=== PATIENT | female | born 1950 | race Caucasian/White ===

== ENCOUNTER 2017-02-17 17:10 | Emergency (ER) | payer OTHER ==
[2017-02-17 17:26] VITALS: BP 137/61
--- NOTE | 2017-02-17 17:50 | UC ---
Hand/Wrist HPI - HPI Summary HPI Summary: right thumb red sore swollen after pw with a knife this am under nail - History Of Current Complaint Chief Complaint: UCUpperExtremity Stated Complaint: SWOLLEN THUMB Time Seen by Provider: 02/17/17 17:39 Hx Obtained From: Patient ?: No Mechanism Of Injury: PW with clean knife Onset/Duration: Sudden Onset - 8, Still Present, Worse Since - getting more swollen all day Severity Initially: Mild Severity Currently: Moderate Pain Intensity: 6 Pain Scale Used: 0-10 Numeric Character Of Pain: Sharp Aggravating Factor(s): Movement Alleviating: Elevation Associated Signs And Symptoms: Positive: Swelling, Redness, Bruising Related History: Dominant Hand Right - Allergies/Home Medications Allergies/Adverse Reactions: Allergies Allergy/AdvReac Type Severity Reaction Status Date / Time Penicillins Allergy See Comment Verified 02/17/17 17:26 PMH/Surg Hx/FS Hx/Imm Hx Previously Healthy: Yes Endocrine History Of: Denies: Diabetes, Thyroid Disease Cardiovascular History Of: Denies: Cardiac Disorders, Hypertension, Pacemaker/ICD Respiratory History Of: Denies: COPD, Asthma GI/ History Of: Denies: Ulcer, Renal Disease Cancer History Of: Denies: Breast Cancer - Surgical History Surgical History: Yes Surgery Procedure, Year, and Place: nick; T & A; wisdom teeth - Family History Known Family History: Positive: None Family History: no cardiovascular or bleeding disorders in family lineage - Social History Occupation: Employed Full-time Lives: With Family Alcohol Use: Rare Substance Use Type: None Smoking Status (MU): Never Smoked Tobacco - Immunization History Hx Tetanus, Diphtheria Vaccination: Yes Vaccination Up to Date: Yes Review of Systems Constitutional: Negative Skin: Negative Eyes: Negative ENT: Negative Respiratory: Negative Cardiovascular: Negative Gastrointestinal: Negative Genitourinary: Negative Motor: Negative Neurovascular: Negative Musculoskeletal: Negative, Edema - right thumb, Myalgia - right thumb Neurological: Negative Psychological: Negative All Other Systems Reviewed And Are Negative: Yes Physical Exam Triage Information Reviewed: Yes Appearance: Well-Appearing, No Pain Distress, Well-Nourished Vital Signs: Initial Vital Signs Temp 98.9 F 02/17/17 17:23 Pulse 65 02/17/17 17:23 Resp 16 02/17/17 17:23 BP 137/61 02/17/17 17:23 Pulse Ox 99 02/17/17 17:23 Vital Signs Reviewed: Yes Eye Exam: Normal Eyes: Positive: Conjunctiva Clear ENT Exam: Normal ENT: Positive: Normal ENT inspection, Hearing grossly normal, Pharynx normal, TMs normal. Negative: Nasal congestion, Nasal drainage, Trismus, Muffled/ hoarse voice Dental Exam: Normal Neck exam: Normal Neck: Positive: Supple, Nontender, No Lymphadenopathy Respiratory Exam: Normal Respiratory: Positive: Chest non-tender, Lungs clear, Normal breath sounds, No respiratory distress, No accessory muscle use Cardiovascular Exam: Normal Cardiovascular: Positive: RRR, No Murmur, Pulses Normal, Brisk Capillary Refill Musculoskeletal Exam: Other Musculoskeletal: Positive: Strength Intact, ROM Intact, Edema @ - distal right thumb Neurological Exam: Normal Neurological: Positive: Alert, Muscle Tone Normal Psychological Exam: Normal Skin Exam: Other Skin: Positive: Other - bruise under top of right thumb nail Hand/Wrist Course/Dx - Course Course Of Treatment: elevate, warm soaks, ibuprofen, bactrim, follow with pcp - Differential Dx/Diagnosis Differential Diagnosis/HQI/PQRI: Contusion, Infection, Subungual Hematoma Provider Diagnoses: Pw right thumb Discharge - Discharge Plan Condition: Stable Disposition: HOME Prescriptions: DOXYcycline CAP(*) [DOXYcycline 100MG CAP(*)] 100 mg PO BID #20 cap Patient Education Materials: Finger Laceration (ED), Heat Pack Application (ED) , Doxycycline (By mouth) Referrals: Vandana Hart MD [Primary Care Provider] - 2 Weeks
== END 2017-02-17 17:57 | disposition home or self-care (01) ==
LOC: UCEAST 17:10
DX: S61.131A Puncture wound without foreign body of right thumb with damage to nail, initial encounter (principal); W26.0XXA Contact with knife, initial encounter; Y92.9 Unspecified place or not applicable
CPT/HCPCS: 99212; G0463

== ENCOUNTER 2017-12-10 08:33 | Emergency (ER) | payer MEDICARE ==
[2017-12-10 08:42] VITALS: BP 124/71
--- NOTE | 2017-12-10 10:38 | UC ---
Romero Dixon Gabriel, scribed for Lena Santiago DO on 12/10/17 at 0905 . Throat Pain/Nasal Steve HPI - HPI Summary HPI Summary: This patient is a 67 year old F presenting to [facility] accompanied by her with a chief complaint of sinus pressure that began a week ago. The patient rates the pain 5/10 in severity. Patient reports cough, fever, near syncope at , rhinorrhea, sinus congestion, unsteady on ambulation, and a sore throat. Patient denies ear pain, CP, SOB, n/v/d, myalgia, joint pain, and confusion. Pt s had the flu and while on Tamiflu he developed a cough that he believes was bacterial. - History of Current Complaint Chief Complaint: UCRespiratory Stated Complaint: COUGH,FEVER Time Seen by Provider: 12/10/17 08:52 Hx Obtained From: Patient Onset/Duration: Lasting Weeks, Still Present Pain Intensity: 5 Pain Scale Used: 0-10 Numeric Cough: Productive Associated Signs & Symptoms: Positive: Negative - ear pain, Other - cough, fever, near syncope, rhinorrhea, sinus congestion, and a sore throat. - Allergies/Home Medications Allergies/Adverse Reactions: Allergies Allergy/AdvReac Type Severity Reaction Status Date / Time Penicillins Allergy See Comment Verified 12/10/17 08:35 PMH/Surg Hx/FS Hx/Imm Hx GI/ History: Other - Hiatal hernia Other GI/ History: Hiatal hernia Other History Of: Negative For: Hepatitis C - Surgical History Surgical History: Yes Surgery Procedure, Year, and Place: nick; T & A; wisdom teeth ,polyps removed - Family History Known Family History: Positive: None Negative: Cardiac Disease, Hypertension Family History: no cardiovascular or bleeding disorders in family lineage - Social History Alcohol Use: Rare Substance Use Type: None Smoking Status (MU): Never Smoked Tobacco - Immunization History Hx Tetanus, Diphtheria Vaccination: Yes Vaccination Up to Date: Yes Review of Systems Constitutional: Fever ENT: Sore Throat, Nasal Discharge, Sinus Pain/Tenderness Respiratory: Cough Musculoskeletal: Other: - unsteady on ambulation Neurological: Other - near syncope All Other Systems Reviewed And Are Negative: Yes Physical Exam - Summary Physical Exam Summary: Appearance: Well-Appearing, No Pain Distress, Well-Nourished Eyes: conjunctiva clear, no discharge ENT: Hearing grossly normal, no muffled/hoarse voice. TMs normal, negative tonsillar swelling, negative tonsillar exudate, negative trismus. Neck: Normal, Supple Respiratory/Lung Sounds: Lungs clear, mildly prolonged expiration in bilateral bases, No respiratory distress, No accessory muscle use Cardiovascular: RRR, No murmur Abdomen (if she checks): Nontender, Soft, no guarding, not distended Bowel Sounds (if she checks): Present Musculoskeletal: Normal Neurological: Alert, muscle tone normal Psychiatric:Normal, age appropriate behavior Skin: Normal, Warm, Dry, Normal color Triage Information Reviewed: Yes Vital Signs: Initial Vital Signs Temp 99 F 12/10/17 08:38 Pulse 103 12/10/17 08:38 Resp 20 12/10/17 08:38 BP 124/71 12/10/17 08:38 Pulse Ox 98 12/10/17 08:38 Vital Signs Reviewed: Yes Diagnostics - EKG Cardiac Rate: NL - at 88 BPM Cardiac Rhythm: Sinus: Normal - no ST changes, no ectopy Ectopy: None Throat Pain/Nasal Course/Dx - Course Assessment/Plan: This patient is a 67 year old F presenting to [facility] accompanied by her with a chief complaint of sinus pressure that began a week ago. The patient rates the pain 5/10 in severity. Patient reports cough, fever, near syncope, rhinorrhea, sinus congestion, unsteady on ambulation, and a sore throat. Patient denies ear pain, CP, SOB, n/v/d, myalgia, joint pain, and confusion. Pts had the flu and while on Tamiflu he developed a cough that he believes was bacterial. An EKG reveals NSR at [address] changes, no ectopy. Pt was negative for influenza A and B. Patient will be discharged and will report to the ED. The patient is agreeable with this plan. Medications reviewed. Allergies reviewed. - Differential Dx/Diagnosis Provider Diagnoses: URI, near syncope, and unsteady gait Discharge - Discharge Plan Condition: Stable Disposition: HOME Patient Education Materials: Upper Respiratory Infection (ED), Near Syncope (ED ) Referrals: Vandana Hart MD [Primary Care Provider] - Additional Instructions: YOU APPEAR TO HAVE AN UPPER RESPIRATORY VIRUS. THAT IS SOMETHING WE CAN TREAT HERE IN THE URGENT CARE. HOWEVER, BECAUSE YOU HAD AN EPISODE OF NEAR SYNCOPE HERE AND YOU ARE REPORTING UNSTEADY GAIT, WE CAN NOT SEND YOU HOME WITHOUT FURTHER EVALUATION. WE RECOMMEND THAT YOU GO TO THE ED IMMEDIATELY FOR THAT EVALUATION. THE RISKS ASSOCIATED WITH NEAR SYNCOPE AND UNSTEADY GAIT INCLUDE FALLING, DAMAGE TO THE HEART, CARDIAC ARRHYTHMIA, CARDIAC ARREST, DAMAGE TO THE HEART, WORSENING INFECTION AND . The documentation as recorded by the Romero gee Gabriel accurately reflects the service I personally performed and the decisions made by , Lena Santiago DO.
== END 2017-12-10 09:56 | disposition home or self-care (01) ==
LOC: UCEAST 08:33
DX: J06.9 Acute upper respiratory infection, unspecified (principal); R55 Syncope and collapse; R26.81 Unsteadiness on feet; Z88.0 Allergy status to penicillin; K44.9 Diaphragmatic hernia without obstruction or gangrene
CPT/HCPCS: 87502; 93005; 99212; G0463

== ENCOUNTER 2017-12-10 10:17 | Emergency (ER) | payer MEDICARE ==
[2017-12-10] MEDS ORDERED: NS 0.9% 1000 ML* 1,000 ML IV ONE (10:39)
[2017-12-10 11:11] LABS: ABS Basophils 0 10^3/ul (0-0.2); ABS Eosinophils 0 10^3/ul (0-0.6); ABS Lymphocytes 0.6 10^3/ul (1.0-4.8); ABS Monocytes 0.4 10^3/ul (0-0.8); ABS Neutrophils 6.1 10^3/ul (1.5-7.7); ABS Nucleated RBC 0 10^3/ul; Eosinophil % 0.3 % (0-6); Hematocrit 37 % (35-47); Hemoglobin 12.9 g/dl (12.0-16.0); Lymphocyte % 8.2 % (25-47); Mean Corpuscular HGB Conc 35 g/dl (31-36); Mean Corpuscular Hemoglobin 31 pg (27-31); Mean Corpuscular Volume 91 fL (80-97); Mean Platelet Volume 9 um3 (7.4-10.4); Nucleated Red Blood Cells % 0; Platelet Count 140 10^3/ul (150-450); Red Blood Count 4.12 10^6/ul (4.0-5.4); Red Cell Distribution Width 13 % (10.5-15); White Blood Count 7.2 10^3/ul (3.5-10.8)
--- NOTE | 2017-12-10 11:29 | RAD ---
HISTORY: Cough COMPARISONS: None VIEWS: 4: Frontal dual-energy and lateral views of the chest. FINDINGS: CARDIOMEDIASTINAL SILHOUETTE: The cardiomediastinal silhouette is normal. JESSE: The jesse are normal. PLEURA: The costophrenic angles are sharp. No pleural abnormalities are noted. LUNG PARENCHYMA: There is hyperinflation with flattening of the diaphragm and expansion of the AP diameter of the chest. ABDOMEN: The upper abdomen is clear. There is no subphrenic gas. BONES AND SOFT TISSUES: No bone or soft tissue abnormalities are noted. OTHER: None. IMPRESSION: HYPERINFLATION, CONSISTENT WITH COPD. NO ACTIVE CARDIOPULMONARY DISEASE.
[2017-12-10 11:48] LABS: EGFR Non-African American 76.1 (>60)
[2017-12-10] MEDS ORDERED: Azithromycin IV* 500 MG ADVAN VIAL/BAG IVPB ONE (11:55)
[2017-12-10 13:30] LABS: Urine Appearance Clear; Urine Blood 1+ (Negative); Urine Color Straw; Urine Ketones Negative (Negative); Urine Protein Negative (Negative); Urine Specific Gravity 1.005 (1.010-1.030); Urine Urobilinogen Negative (Negative)
[2017-12-10 14:39] VITALS: BP 127/74
--- NOTE | 2017-12-11 08:21 | ED ---
Hollis Dixon Angela, scribed for Kory Leyva MD on 12/10/17 at 1047 . Syncope/Near Syncope - HPI Summary HPI Summary: This pt is a 67 y/o female presenting to [facility] referred by [facility] c/o 1 episode of near syncope this morning. Pt reports she has had a cough for the past 6 days associated with low grade fever, sinus congestion, sore throat, rhinorrhea. She states she feels fatigued. Pt notes her temperature this morning was 100 F and she decided to go to Urgent Care. Pt reports she was sitting down while waiting on the provider when she began to feel lightheaded and like almost fainting. She notes she put her head between her knees and then moved to the bed and laid in a supine position, which alleviated her near syncopal episode. Denies chest pain, SOB, nausea, vomiting. Pt was tested for influenza at Urgent Care, which resulted negative. - History Of Current Complaint Chief Complaint: EDFluSymptoms Time Seen by Provider: 12/10/17 10:36 Hx Obtained From: Patient Onset/Duration: Sudden Onset, Resolved Timing: Minutes Context: Witnessed Activity At Onset: At Rest Associated Head Trauma: No Aggravating Factor(s): Nothing Alleviating Factor(s): Position Change - horizontal position Associated Signs And Symptoms: Other - POS: Sinus congestion, low grade fever, cough, sore throat, rhinorrhea. NEG: SOB, chest pain, nausea, vomiting. - Allergies/Home Medications Allergies/Adverse Reactions: Allergies Allergy/AdvReac Type Severity Reaction Status Date / Time Penicillins Allergy See Comment Verified 12/10/17 08:35 PMH/Surg Hx/FS Hx/Imm Hx Endocrine/Hematology History: Denies: Hx Diabetes, Hx Thyroid Disease Cardiovascular History: Denies: Hx Hypertension, Hx Pacemaker/ICD Respiratory History: Denies: Hx Asthma, Hx Chronic Obstructive Pulmonary Disease (COPD) GI History: Denies: Hx Ulcer History: Denies: Hx Renal Disease Musculoskeletal History: Denies: Hx Rheumatoid Arthritis, Hx Osteoporosis Sensory History: Denies: Hx Hearing Aid Psychiatric History: Denies: Hx Panic Disorder - Cancer History Hx Chemotherapy: No Hx Radiation Therapy: No - Surgical History Surgery Procedure, Year, and Place: nick; T & A; wisdom teeth ,polyps removed Infectious Disease History: No Infectious Disease History: Denies: Hx Clostridium Difficile, Hx Hepatitis, Hx Human Immunodeficiency Virus (HIV), Hx of Known/Suspected MRSA, Hx Shingles, Hx Tuberculosis, Hx Known/ Suspected VRE, History Other Infectious Disease, Traveled Outside the [place] in Last 30 Days - Family History Known Family History: Negative: Cardiac Disease, Hypertension Family History: no cardiovascular or bleeding disorders in family lineage - Social History Alcohol Use: Rare Substance Use Type: Reports: None Smoking Status (MU): Never Smoked Tobacco Review of Systems Positive: Fever, Fatigue ENT: Other - sinus congestion Positive: Sore Throat, Nasal Discharge Negative: Chest Pain Positive: Cough. Negative: Shortness Of Breath Negative: Vomiting, Nausea Neurological: Other - POS: lightheadedness, near syncope All Other Systems Reviewed And Are Negative: Yes Physical Exam - Summary Physical Exam Summary: VITAL SIGNS: Reviewed. GENERAL: Patient is a well-developed and nourished female who is lying comfortable in the stretcher. Patient is not in any acute respiratory distress. Pt is febrile. HEAD AND FACE: No signs of trauma. No ecchymosis, hematomas or skull depressions. No sinus tenderness. EYES: PERRLA, EOMI x 2, No injected conjunctiva, no nystagmus. EARS: Hearing grossly intact. Ear canals and tympanic membranes are within normal limits. MOUTH: Oropharynx within normal limits. NECK: Supple, trachea is midline, no adenopathy, no JVD, no carotid bruit, no c- spine tenderness, neck with full ROM. CHEST: Symmetric, no tenderness at palpation LUNGS: Crackles in the bases of the lungs. CVS: Regular rate and rhythm, S1 and S2 present, no murmurs or gallops appreciated. ABDOMEN: Soft, non-tender. No signs of distention. No rebound no guarding, and no masses palpated. Bowel sounds are normal. EXTREMITIES: FROM in all major joints, no edema, no cyanosis or clubbing. NEURO: Alert and oriented x 3. No acute neurological deficits. Speech is normal and follows commands. SKIN: Dry and warm GCS: 15 Triage Information Reviewed: Yes Vital Signs On Initial Exam: Initial Vitals Temp Pulse Resp BP Pulse Ox 101.0 F 100 20 130/76 93 12/10/17 10:25 12/10/17 10:25 12/10/17 10:25 12/10/17 10:25 03/08/18 10:25 Vital Signs Reviewed: Yes Diagnostics - Vital Signs Vital Signs Temp Pulse Resp BP Pulse Ox 12/10/17 10:25 101.0 F 100 20 130/76 93 - Laboratory Result Diagrams: 12/10/17 10:45 12/10/17 10:45 Lab Statement: Any lab studies that have been ordered have been reviewed, and results considered in the medical decision making process. - Radiology Chest XR Xray Interpretation: Positive (See Comments) - IMPRESSION: Hyperinflation, consistent with COPD. No active cardiopulmonary disease. Dr. Leyva has reviewed this radiology report. Radiology Interpretation Completed By: Radiologist - EKG 10:50 Cardiac Rate: NL EKG Rhythm: Sinus Rhythm - at 85 bpm EKG Interpretation: No ST elevation. Course/Dx Assessment/Plan: This pt is a 67 y/o female presenting to [facility] referred by [facility] c/o 1 episode of near syncope this morning. Pt reports she has had a cough for the past 6 days associated with low grade fever, sinus congestion, sore throat, rhinorrhea. She states she feels fatigued. Pt notes her temperature this morning was 100 F and she decided to go to Urgent Care. Pt reports she was sitting down while waiting on the provider when she began to feel lightheaded and like almost fainting. She notes she put her head between her knees and then moved to the bed and laid in a supine position, which alleviated her near syncopal episode. Denies chest pain, SOB, nausea, vomiting. Pt was tested for influenza at Urgent Care, which resulted negative. Test results without any significant abnormalities. Pt has no WBC, however CRP is elevated. Since the chest XR shows no pneumonia, I believe the pt is dealing with bronchitis. Also since the pt has a history of COPD, I placed the pt on azithromycin. At this point the pt is feeling better and therefore she will be discharged to home with follow up from her PCP. Pt is hemodynamically stable, alert and oriented x3. She is instructed to return to the ED for any worsening or new symptoms. - Diagnoses Provider Diagnoses: Bronchitis Discharge - Discharge Plan Condition: Stable Disposition: HOME Prescriptions: Azithromycin TAB* [Zithromax TAB (Z-DAVID) 250 mg #6 tabs] 250 mg PO DAILY #4 tab Patient Education Materials: Acute Bronchitis (ED) Referrals: Vandana Hart MD [Primary Care Provider] - 3 Days Additional Instructions: Please follow up with your primary care provider. RETURN TO THE ED FOR ANY WORSENING SYMPTOMS. The documentation as recorded by the Hollis gee Angela accurately reflects the service I personally performed and the decisions made by , Kory Leyva MD.
== END 2017-12-10 14:58 | disposition home or self-care (01) ==
LOC: ED 10:17
DX: J40 Bronchitis, not specified as acute or chronic (principal); R50.9 Fever, unspecified; R05 Cough; J02.9 Acute pharyngitis, unspecified; R53.83 Other fatigue
CPT/HCPCS: 36415; 71046; 80053; 81003; 81015; 82550; 82553; 83605; 83880; 84484; 85025; 86140; 87040; 87086; 93005; 96365; 99282; J0456

== ENCOUNTER 2018-05-14 08:17 | Emergency (ER) | payer MEDICARE ==
--- OUTSIDE RECORDS SUMMARY | 2018-05-14 08:25 | XMS REPORT ---
:1950 External Reference #:[id number] Author Organization [facility] Address [address] [place] [address] [place] [address] Phone [phone] Care Team Providers Name Role Phone Vandana Hart MD Primary Care Physician Unavailable Payers Type Date Identification Numbers Payment Provider Subscriber Health Maintenance Effective: Policy Number: Medicare Blue Jen Eckert Organization (O) 10/05/2017 [id number] o PayID: [id number] [address] [address] [place] [address] Problems Description No Active Problems Family History Date Family Member(s) Problem(s) Comments Father due to Natural Causes () Mother Heart Disease on warfarin, no detail Mother Osteoporosis hip Fx in her 90s First Brother Diabetes Social History Type Date Description Comments Marital Status Lives With Occupation Retired not working ETOH Use Drinks Alcoholic Beverages Rarely Smoking Patient has never smoked Daily Caffeine Consumes on average 2 cups of decaff coffee per day General Hx Text Allergies, Adverse Reactions, Alerts Date Description Reaction Status Severity Comments 07/16/2012 Penicillins Allergic arthritis, Erythema nodosum active Medications Medication Date Status Form Strength Qnty SIG Indications Ordering Provider Baclofen 04/15/ Active Tablets 10mg 14tabs take 10/06 M54.5 Anshul Marshall, 2018 tab [employer] LEAD every 8 hours as needed for muscle spasm Vitamin B 12/01/ Active Capsules Kandice Leong 2012 Reggie Thomas Vit D / Active Unknown 0000 Omeprazole 05/15/ Hx Capsules 20mg 30caps 1 by R10.13 Vandana 2016 - DR harvinder Hart, 12/18/ every M.D. 2018 day Azithromycin 07/25/ Hx Tablets 250mg 6tabs 2 tabs J20.9 Vandana 2015 - by mouth Cotton, 08/05/ on day M.D. 2015 1; 1 tab by mouth every day on days 2-5 Vitamin D 09/14/ Hx Capsules [id number] 12caps 1 by E55.9 Vandana (Ergocalciferol 2014 - mouth Cotton, ) 12/17/ once M.D. 2015 weekly for 12 weeks Calcipotriene 09/12/ Hx Solution 0.005% 60ml Apply to 782.1 Vandana 2013 - itchy Cotton, 03/02/ parts of M.D. 2014 the scalp bid Womens Multi / Hx Capsules daily Unknown 0000 - 2012 [facility] / Hx Tablets daily Unknown 0000 - 2012 Immunizations CPT Code Status Date Vaccine Reaction Lot # [id number] Given 02/11/2018 Pneumonia Vaccine No allergies noted - no [id number] immediate side effects seen - patient tolerated well [id number] Given 10/21/2017 Afluria Vaccine 30180 Given 12/12/2016 Zoster (Zostavax) no immediate reaction [id number] noted ... 18399 Given 10/14/2016 Pneumococcal Conjugate no immediate reaction [id number] Vaccine 13 Valent For noted .. Intramuscular Use 67184 Given 08/18/2016 Influenza Virus Vaccine, no immediate reaction [id number] Quadrivalent, Split Virus, [place] [address] Given 09/14/2015 Influenza Virus Vaccine, [id number] Quadrivalent, Split, Preservative Free 29991 Given 09/12/2014 Flu Vaccine Split Virus [id number] Preservative Free For Indiv 3Yr Older Q2038 Given 07/16/2012 Fluzone Vaccine [id number] 48369 Given 07/16/2012 Tdap - [id number] Tetanus/Diptheria/Acellular Pertussis Vital Signs Date Vital Result Comment 04/15/2018 Height 67 inches 5'7" Weight 167.00 lb Heart Rate 62 /min BP Systolic Sitting 151 mmHg BP Diastolic Sitting 89 mmHg O2 % BldC Oximetry 98 % BMI (Body Mass Index) 26.2 kg/m2 02/11/2018 Height 67 inches 5'7" Weight 167.00 lb Heart Rate 78 /min BP Systolic Sitting 125 mmHg BP Diastolic Sitting 75 mmHg Body Temperature 98.4 F O2 % BldC Oximetry 97 % BMI (Body Mass Index) 26.2 kg/m2 12/21/2017 Weight 168.00 lb Heart Rate 72 /min BP Systolic Sitting 120 mmHg BP Diastolic Sitting 72 mmHg Body Temperature 97.3 F O2 % BldC Oximetry 98 % 07/02/2017 Weight 171.00 lb Heart Rate 73 /min BP Systolic 110 mmHg BP Diastolic 60 mmHg O2 % BldC Oximetry 98 % 05/15/2017 Weight 165.75 lb Heart Rate 69 /min BP Systolic 122 mmHg BP Diastolic 64 mmHg Body Temperature 97.6 F O2 % BldC Oximetry 98 % 03/09/2017 Weight 167.00 lb Heart Rate 77 /min BP Systolic Sitting 136 mmHg BP Diastolic Sitting 84 mmHg O2 % BldC Oximetry 97 % 12/12/2016 Weight 166.00 lb with shoes Heart Rate 67 /min BP Systolic 140 mmHg BP Diastolic 86 mmHg O2 % BldC Oximetry 98 % 11/14/2016 Height 67 inches 5'7" Weight 167.75 lb with boots Heart Rate 77 /min BP Systolic 150 mmHg BP Diastolic 80 mmHg Body Temperature 97.8 F O2 % BldC Oximetry 98 % BMI (Body Mass Index) 26.3 kg/m2 10/14/2016 Height 67 inches 5'7" Weight 165.00 lb Heart Rate 69 /min BP Systolic 124 mmHg BP Diastolic 74 mmHg Body Temperature 98.4 F O2 % BldC Oximetry 98 % BMI (Body Mass Index) 25.8 kg/m2 09/18/2016 Weight 172.00 lb Heart Rate 68 /min BP Systolic Sitting 124 mmHg BP Diastolic Sitting 78 mmHg Respiratory Rate 15 /min Body Temperature 97.5 F O2 % BldC Oximetry 98 % 08/18/2016 Height 67.25 inches 5'7.25" Weight 166.00 lb Heart Rate 73 /min BP Systolic 120 mmHg BP Diastolic 70 mmHg Body Temperature 98.3 F O2 % BldC Oximetry 98 % BMI (Body Mass Index) 25.8 kg/m2 07/25/2016 Weight 163.00 lb Heart Rate 76 /min BP Systolic Sitting 128 mmHg BP Diastolic Sitting 74 mmHg Respiratory Rate 15 /min Body Temperature 97.7 F O2 % BldC Oximetry 98 % 07/21/2016 Weight 160.00 lb Heart Rate 72 /min BP Systolic Sitting 122 mmHg BP Diastolic Sitting 80 mmHg Respiratory Rate 15 /min Body Temperature 98.4 F O2 % BldC Oximetry 98 % 05/19/2016 Weight 156.00 lb Heart Rate 65 /min BP Systolic Sitting 145 mmHg BP Diastolic Sitting 80 mmHg O2 % BldC Oximetry 98 % 09/14/2015 Height 67.25 inches 5'7.25" Weight 166.00 lb Heart Rate 72 /min BP Systolic Sitting 127 mmHg BP Diastolic Sitting 77 mmHg Body Temperature 97.3 F O2 % BldC Oximetry 99 % BMI (Body Mass Index) 25.8 kg/m2 03/02/2015 Height 68 inches 5'8" Weight 164.00 lb Heart Rate 70 /min BP Systolic 120 mmHg BP Diastolic 65 mmHg Body Temperature 97.9 F BMI (Body Mass Index) 24.9 kg/m2 09/12/2014 Height 68 inches 5'8" Weight 170.50 lb Heart Rate 86 /min BP Systolic Sitting 120 mmHg BP Diastolic Sitting 82 mmHg Body Temperature 97.6 F BMI (Body Mass Index) 25.9 kg/m2 05/30/2014 Weight 159.50 lb Heart Rate 84 /min BP Systolic Sitting 120 mmHg BP Diastolic Sitting 76 mmHg Body Temperature 96.9 F 01/30/2014 Weight 169.00 lb Heart Rate 68 /min BP Systolic Sitting 130 mmHg BP Diastolic Sitting 82 mmHg Body Temperature 97.9 F 09/09/2013 Height 67.75 inches 5'7.75" Weight 173.00 lb Heart Rate 64 /min BP Systolic 126 mmHg BP Diastolic 66 mmHg BMI (Body Mass Index) 26.5 kg/m2 05/23/2013 Weight 168.00 lb Heart Rate 68 /min BP Systolic Sitting 126 mmHg BP Diastolic Sitting 72 mmHg 01/21/2013 Weight 176.00 lb Heart Rate 64 /min BP Systolic Sitting 132 mmHg BP Diastolic Sitting 60 mmHg 12/17/2012 Height 67.75 inches 5'7.75" Weight 178.50 lb Heart Rate 68 /min BP Systolic Sitting 118 mmHg BP Diastolic Sitting 74 mmHg BMI (Body Mass Index) 27.3 kg/m2 12/01/2012 Height 67.75 inches 5'7.75" Weight 175.00 lb Heart Rate 82 /min BP Systolic Sitting 122 mmHg BP Diastolic Sitting 62 mmHg BMI (Body Mass Index) 26.8 kg/m2 10/18/2012 Height 67.75 inches 5'7.75" Weight 172.00 lb Heart Rate 74 /min BP Systolic Sitting 124 mmHg BP Diastolic Sitting 78 mmHg BMI (Body Mass Index) 26.3 kg/m2 09/17/2012 Height 67.75 inches 5'7.75" Weight 172.00 lb Heart Rate 72 /min BP Systolic Sitting 128 mmHg BP Diastolic Sitting 74 mmHg BMI (Body Mass Index) 26.3 kg/m2 07/16/2012 Height 67.75 inches 5'7.75" Weight 167.00 lb Heart Rate 74 /min BP Systolic Sitting 126 mmHg BP Diastolic Sitting 64 mmHg BMI (Body Mass Index) 25.6 kg/m2 Results Test Date Test Result H/L Range Note Rapid Influenza A & B 12/10/2017 Influenza A Molecular NEGATIVE Negative 1 Molecular Influenza B Molecular NEGATIVE Negative Laboratory test finding 12/10/2017 Blood Culture SEE RESULT BELOW 2 CKMB 12/10/2017 CKMB ng/mL 1.2 ng/mL 0.6-6.3 Urinalysis Profile 12/10/2017 Urine Color Straw Urine Appearance Clear Urine Specific [place] 1.005 Low 1.010-1.030 Urine pH 7.0 5-9 Urine Urobilinogen Negative Negative Urine Ketones Negative Negative Urine Protein Negative Negative Urine Leukocytes Negative Negative Urine Blood 1+ Negative Urine Nitrite Negative Negative Urine Bilirubin Negative Negative Urine Glucose Negative Negative Urine White Blood Cell Trace(0-5/hpf) Absent Urine Red Blood Cell Trace(0-2/hpf) Absent Urine Bacteria Absent Absent Urine Squamous Epithelial Cell Present Absent Urine Culture And 12/10/2017 Urine Culture SEE RESULT BELOW 3 Sensitivities Laboratory test finding 12/10/2017 Creatine Kinase(CK) 69 U/L 10-223 C Reactive Protein 14.99 mg/L High < 5.00 4 Troponin-I (TnI) 0.00 ng/mL <0.04 Laboratory test finding 12/10/2017 Rapid Influenza A B SEE RESULT BELOW 5 Antigen Lactic Acid 0.6 mmol/L 0.5-2.0 6 B-Type Natriuretic Peptide BNP 15 pg/mL 7 Comp Metabolic Panel 12/10/2017 Sodium 133 mmol/L 133-145 Potassium 4.1 mmol/L 3.5-5.0 Chloride 102 mmol/L 101-111 Co2 Carbon Dioxide 23 mmol/L 22-32 Anion Gap 8 mmol/L 2-11 Glucose 104 mg/dL High 70-100 Blood Urea Nitrogen 13 mg/dL 6-24 Creatinine 0.76 mg/dL 0.51-0.95 BUN/Creatinine Ratio 17.1 8-20 Calcium 9.2 mg/dL 8.6-10.3 Total Protein 7.2 g/dL 6.4-8.9 Albumin 4.1 g/dL 3.2-5.2 Globulin 3.1 g/dL 2-4 Albumin/Globulin Ratio 1.3 1-3 Total Bilirubin 0.40 mg/dL 0.2-1.0 Alkaline Phosphatase 95 U/L 34-104 Alt 40 U/L 7-52 Ast 39 U/L 13-39 Egfr Non- 76.1 >60 Egfr 97.9 >60 8 Laboratory test 12/03/2017 Surgical Interface Order SEE RESULT BELOW 9 , 10 finding Laboratory test 12/03/2017 Clotest SEE RESULT BELOW 11, 12 finding Lipid Profile 10/16/2017 Triglycerides 103 mg/dL 13 (Trig/Chol/HDL) Cholesterol 196 mg/dL 14 HDL Cholesterol 46.3 mg/dL 15 LDL Cholesterol 129 mg/dL 16 Laboratory test finding 10/16/2017 Glucose 93 mg/dL 70-100 17 CBC Auto Diff 05/15/2017 White Blood Count 6.8 10^3/uL 3.5-10.8 Red Blood Count 4.35 10^6/uL 4.0-5.4 Hemoglobin 13.5 g/dL 12.0-16.0 Hematocrit 40 % 35-47 Mean Corpuscular Volume 92 fL 80-97 Mean Corpuscular Hemoglobin 31 pg 27-31 Mean Corpuscular HGB Conc 34 g/dL 31-36 Red Cell Distribution Width 13 % 10.5-15 Platelet Count 183 10^3/uL 150-450 Mean Platelet Volume 10 um3 7.4-10.4 Abs Neutrophils 4.8 10^3/uL 1.5-7.7 Abs Lymphocytes 1.2 10^3/uL 1.0-4.8 Abs Monocytes 0.5 10^3/uL 0-0.8 Abs Eosinophils 0.2 10^3/uL 0-0.6 Abs Basophils 0.1 10^3/uL 0-0.2 Abs Nucleated RBC 0 10^3/uL Granulocyte % 70.3 % 38-83 Lymphocyte % 18.1 % Low 25-47 Monocyte % 7.5 % 1-9 Eosinophil % 3.4 % 0-6 Basophil % 0.7 % 0-2 Nucleated Red Blood Cells % 0 Comp Metabolic Panel 05/15/2017 Sodium 137 mmol/L 133-145 Potassium 4.1 mmol/L 3.5-5.0 Chloride 103 mmol/L 101-111 Co2 Carbon Dioxide 29 mmol/L 22-32 Anion Gap 5 mmol/L 2-11 Glucose 96 mg/dL 70-100 Blood Urea Nitrogen 12 mg/dL 6-24 Creatinine 0.86 mg/dL 0.51-0.95 BUN/Creatinine Ratio 14.0 8-20 Total Protein 6.7 g/dL 6.4-8.9 Albumin 4.2 g/dL 3.2-5.2 Globulin 2.5 g/dL 2-4 Albumin/Globulin Ratio 1.7 1-3 Total Bilirubin 0.60 mg/dL 0.2-1.0 Alkaline Phosphatase 80 U/L 34-104 Alt 29 U/L 7-52 Ast 27 U/L 13-39 Egfr Non- 66.0 >60 Egfr 84.9 >60 18 Calcium 9.1 mg/dL 8.6-10.3 Laboratory test finding 05/15/2017 Lipase 14 U/L 11.0-82.0 Lipid Profile (Trig/Chol/HDL) 10/07/2016 Triglycerides 96 mg/dL 19, 20 Cholesterol 162 mg/dL 19, 21 HDL Cholesterol 40.5 mg/dL 19, 22 LDL Cholesterol 102 mg/dL 19, 23 Laboratory test finding 10/07/2016 Glucose 88 mg/dL 70-100 19, 24 Vitamin D Total 25(Oh) 37.1 ng/mL 30-50 19, 25 Laboratory test finding 07/21/2016 Culture Throat SEE RESULT BELOW 26 Lipid Profile (Trig/Chol/HDL) 09/07/2015 Triglycerides 119 mg/dL 27 Cholesterol 235 mg/dL 28 HDL Cholesterol 48.7 mg/dL 29 LDL Cholesterol 163 mg/dL 30 Comp Metabolic Panel 09/07/2015 Sodium 140 mmol/L 133-145 Potassium 4.2 mmol/L 3.5-5.0 Chloride 104 mmol/L 101-111 Co2 Carbon Dioxide 31 mmol/L 22-32 Anion Gap 5 mmol/L 2-11 Glucose 88 mg/dL 70-100 Blood Urea Nitrogen 14 mg/dL 6-24 Creatinine 0.83 mg/dL 0.51-0.95 BUN/Creatinine Ratio 16.9 8-20 Calcium 9.3 mg/dL 8.6-10.3 Total Protein 6.5 g/dL 6.4-8.9 Albumin 4.1 g/dL 3.2-5.2 Globulin 2.4 g/dL 2-4 Albumin/Globulin Ratio 1.7 1-3 Total Bilirubin 0.60 mg/dL 0.2-1.0 Alkaline Phosphatase 78 U/L 34-104 Alt 32 U/L 7-52 Ast 30 U/L 13-39 Egfr Non- 69.2 >60 Egfr 89.0 >60 31 Laboratory test finding 09/07/2015 Vitamin D Total 25(Oh) 22.9 ng/mL Low 30-50 32 Lipid Profile 09/05/2014 Triglycerides 108 mg/dL 19, 33 (Trig/Chol/HDL) Cholesterol 222 mg/dL 19, 34 HDL Cholesterol 45.9 mg/dL 19, 35 LDL Cholesterol 155 mg/dL 19, 36 Comp Metabolic Panel 09/05/2014 Sodium 141 mmol/L 133-145 19 Potassium 4.0 mmol/L 3.5-5.0 19, 37 Chloride 105 mmol/L 101-111 19 Co2 Carbon Dioxide 32 mmol/L 22-32 19 Anion Gap 4 mmol/L 2-11 19 Glucose 85 mg/dL 70-100 19 Blood Urea Nitrogen 12 mg/dL 6-24 19 Creatinine 0.85 mg/dL 0.51-0.95 19 BUN/Creatinine Ratio 14.1 8-20 19 Calcium 9.3 mg/dL 8.6-10.3 19 Total Protein 6.6 g/dL 6.4-8.9 19 Albumin 4.1 g/dL 3.2-5.2 19 Globulin 2.5 g/dL 2-4 19 Albumin/Globulin Ratio 1.6 1-3 19 Total Bilirubin 0.50 mg/dL 0.2-1.0 19 Alkaline Phosphatase 68 U/L 34-104 19 Alt 29 U/L 7-52 19 Ast 27 U/L 13-39 19 Egfr Non- 67.5 >60 19 Egfr 86.9 >60 19, 38 Vitamin D, 25 Hydroxy 09/05/2014 25-Hydroxy Vitamin D2 <4.0 ng/mL 19 25-Hydroxy Vitamin D3 31 ng/mL 19 25-Hydroxy Vitamin D Total 31 ng/mL 19, 39 Laboratory test 09/08/2013 TSH (Thyroid Stimulating 2.08 miu/mL 0.34- 5.60 40 finding Horm) Lipid Profile 09/08/2013 Triglycerides 130 mg/dL 40-200 (Trig/Chol/HDL) Cholesterol 217 mg/dL High Less than 200 HDL Cholesterol 47 mg/dL 40-60 41 Cholesterol/HDL Ratio 4.6 Average High 1-4.44 LDL Cholesterol 144.0 High Less Than 100 42 Laboratory test finding 09/08/2013 Vitamin B12 481 pg/mL 180-914 43 Vitamin D, 25 Hydroxy 09/08/2013 25-Hydroxy Vitamin D2 <4.0 ng/mL 25-Hydroxy Vitamin D3 25 ng/mL 25-Hydroxy Vitamin D Total 25 ng/mL 44 Comp Metabolic Panel 09/15/2012 Sodium 139 mmol/L 133-145 Potassium 4.1 mmol/L 3.5-5.0 Chloride 103 mmol/L 101-111 Co2 Carbon Dioxide 29.0 mmol/L 22-32 Anion Gap 7.0 mmol/L 2-11 Blood Urea Nitrogen 12 mg/dL 6-24 Creatinine 0.70 mg/dL 0.50-1.40 BUN/Creatinine Ratio 17.1 8-20 Calcium 9.1 mg/dL 8.1-9.9 Total Protein 6.5 g/dL 6.2-8.1 Albumin 3.8 g/dL 3.2-5.2 Globulin 2.7 g/dL 2-4 Albumin/Globulin Ratio 1.4 1-3 Total Bilirubin 0.6 mg/dL 0.4-1.5 Alkaline Phosphatase 86 U/L 30-110 Alt 32 U/L 14-54 Ast 28 U/L 12-42 Egfr Non- 85.1 >60 Egfr 109.4 >60 45 Laboratory test finding 09/15/2012 Glucose 89 mg/dL 70-100 46 TSH (Thyroid Stimulating Horm) 3.03 MIU/ML 0.34-5.60 47 Free T4 0.66 ng/mL 0.61-1.24 48 Lipid Profile (Trig/Chol/HDL) 09/15/2012 Triglycerides 121 mg/dL 40-200 Cholesterol 214 mg/dL High Less than 200 HDL Cholesterol 45 mg/dL 40-60 49 Cholesterol/HDL Ratio 4.8 Average High 1-4.44 LDL Cholesterol 144.8 mg/dL High Less Than 100 50 Triglycerides 121 mg/dL 40-200 Cholesterol 214 mg/dL High Less than 200 HDL Cholesterol 45 mg/dL 40-60 51 Cholesterol/HDL Ratio 4.8 Average High 1-4.44 LDL Cholesterol 144.8 mg/dL High Less Than 100 52 Surgical Pathology 08/24/2012 S RUN DATE: <SEE NOTE> Cytology 07/16/2012 Cy RUN DATE: <SEE NOTE> Human Papilloma Virus 07/16/2012 Human Papillomavirus Source CERV Human Papillomavirus High Risk Negative Negative 55 Laboratory test finding 07/16/2012 Cytology RUN DATE: SEE NOTE> 56 1 Senior Hadoop Developer: [id number] 2 SEE RESULT BELOW Name: JEN ECKERT Donna : [address]: Kory Leyva MD Acct: [id number] Unit: [id number] AGE: 67 Location: ED Re12/10/17 SEX: F Status: DEP ER SPEC: [id number] MICHELLE: 12/10/[address] [facility] DR: Kory Leyva MD REQ: [id number] RECD: 12/10/17 STATUS: IAIN GILBERT DR: Vandana Hart MD _ SOURCE: BLOOD,VENO SPDES: ORDERED: Blood Cult Procedure Result Reported Site Aerobic Culture Bottle Final 12/15/17- 1310 ML No Growth Day 5 Anaerobic Culture Bottle Final 12/15/17- 1310 ML No Growth Day 5 * ML - Main Lab . END OF REPORT DEPARTMENT OF PATHOLOGY, [address] [place] [address] Enrike Peacock M.D. Director [facility] # [id number] 3 SEE RESULT BELOW Name: JEN ECKERT : [address]: Kory Leyva MD Acct: [id number] Unit: [id number] AGE: 67 Location: ED Re12/10/17 SEX: F Status: DEP ER SPEC: [id number] MICHELLE: 12/10/17-[address] [facility] DR: Kory Leyva MD REQ: [id number] RECD: 12/10/17 STATUS: IAIN GILBERT DR: Vandana Hart MD _ SOURCE: URINE SPDESC: ORDERED: Urine Culture Procedure Result Reported Site Urine Culture Final 12/11/17- 1244 ML No growth of clinically significant organisms * ML - Main Lab . END OF REPORT DEPARTMENT OF PATHOLOGY, [address] [place] [address] Enrike Peacock M.D. Director [facility] # [id number] 4 Acute inflammation: >10.00 5 SEE RESULT BELOW Name: JEN ECKERT : [address]: Kory Leyva MD Acct: [id number] Unit: [id number] AGE: 67 Location: ED Re12/10/17 SEX: F Status: REG ER SPEC: [id number] MICHELLE: 12/10/17-[address] [facility] DR: Kory Leyva MD REQ: [id number] RECD: 12/10/17 STATUS: IAIN GILBERT DR: Vandana Hart MD _ SOURCE: ROHAN SPDES: ORDERED: Flu A B Request Procedure Result Reported Site Rapid Influenza A B Request Final 12/10/17- 1130 ML Specimen received for Influenza A/B Molecular testing * ML - Main Lab . END OF REPORT DEPARTMENT OF PATHOLOGY, [address] [place] [address] Enrike Peacock M.D. Director [facility] # [id number] 6 [facility] Severe Sepsis and Septic Shock Management Bundle Measure requires all lactic acids initially measuring >2.0 mmol/L be repeated. 7 >100 to <200 pg/mL: likely compensated congestive heart failure (CHF) 200 to 400 pg/mL: likely moderate CHF >400 pg/mL: likely moderate to severe CHF 8 Because ethnic data is not always readily available, this report includes an eGFR for both -Americans and non- Americans. The National Kidney Disease Education Program (NKDEP) does not endorse the use of the MDRD equation for patients that are not between the ages of 18 and 70, are , have extremes of body size, muscle mass, or nutritional status, or are non- or non-. According to the National Kidney Foundation, irrespective of diagnosis, the stage of the disease is based on the level of kidney function: Stage Description GFR(mL/min/1.73 m(2)) 1 Kidney damage with normal or decreased GFR 90 2 Kidney damage with mild decrease in GFR 60-89 3 Moderate decrease in GFR 30-59 4 Severe decrease in GFR 15-29 5 Kidney failure <15 (or dialysis) 9 [id number] 10 SEE RESULT BELOW Name: JEN ECKERT : [address]: Jonah Galvin MD Acct: [id number] Unit: [id number] AGE: 67 Location: [facility] Re12/03/17 SEX: F Status: DEP REF SPEC: [id number] MICHELLE: 12/03/17- SUBM DR: Jonah Galvin MD REQ: [id number] RECD: 12/03/17 STATUS: RAMÓN GILBERT DR: Vandana Hart MD _ ORDERED: LEVEL 4/4 COMMENTS: [id number] FINAL DIAGNOSIS 1. Duodenum, biopsy: -- Benign small intestinal mucosa with no significant pathologic abnormalities. -- No evidence of villous blunting or increased intraepithelial lymphocytes. 2. Colon, cecum, biopsy: -- Tubular adenoma. -- No high grade dysplasia or malignancy. 3. Colon, at 70 cm, biopsy: -- Sessile serrated adenoma. -- No high grade dysplasia or malignancy. 4. Colon, at 65 cm, biopsy: -- Hyperplastic polyps. CLINICAL HISTORY Screening/Surveillance for malignancy in asymptomatic patient. POST-OPERATIVE DIAGNOSIS Esophagus ? hiatal hernia, small ulcer; stomach and duodenum ? normal, both biopsied. Colonoscopy to terminal ileum ? cecal polyp snare, 70 cm snare, 65 cm biopsy x2; few tics GROSS DESCRIPTION 1. The specimen is received in formalin labeled, Biopsy Duodenum, and consists of a 0.4 x 0.3 x 0.1 cm farrell-pink irregular soft tissue fragment which is submitted entirely in one cassette. 2. The specimen is received in formalin labeled, Cecal Polyp, and consists of a 0.5 x 0.3 CONTINUED ON NEXT PAGE DEPARTMENT OF PATHOLOGY, [address], [place], [place] [address] Enrike Peacock M.D. Director [facility] # [id number] RUN DATE: 12/04/17 [facility] LAB LIVE PAGE 2 Patient: JEN ECKERT [id number] (Continued) GROSS DESCRIPTION (Continued) GROSS DESCRIPTION (Continued) by up to 0.2 cm farrell-pink irregular to polypoid soft tissue fragment which is submitted entirely in one cassette. 3. The specimen is received in formalin labeled, Polyp at 70 cm, and consists of a 1.1 x 0.8 by up to 0.2 cm aggregate of farrell-pink irregular to polypoid soft tissue fragments which is submitted entirely in one cassette. 4. The specimen is received in formalin labeled, Biopsy Polyps at 65 cm, and consists of a 0.5 x 0.4 x 0.1 cm aggregate of farrell-pink irregular soft tissue fragments which is submitted entirely in one cassette. Signed (signature on file) Saira Salazar MD 11/22 1358 END OF REPORT DEPARTMENT OF PATHOLOGY, [address] [place] [address] Enrike Peacock M.D. Director [facility] # [id number] 11 [id number] 12 SEE RESULT BELOW Name: JEN ECKERT : [address]: Jonah Galvin MD Acct: [id number] Unit: [id number] AGE: 67 Location: [facility] Re12/03/17 SEX: F Status: DEP REF SPEC: [id number] MICHELLE: 12/03/17-[address] [facility] DR: Jonah Galvin MD REQ: [id number] RECD: 12/03/17 STATUS: IAIN GILBERT DR: Vandana Hart MD _ SOURCE: GAS ANTRUM SPDESC: ORDERED: Clotest COMMENTS: [id number] Procedure Result Reported Site Clotest Final 12/04/17- 933 ML Clotest Negative * ML - Main Lab . END OF REPORT DEPARTMENT OF PATHOLOGY, [address] [place] [address] Enrike Peacock M.D. Director [facility] # [id number] 13 Desirable: <150 Borderline High: 150-199 High: 200-499 Very High: >500 14 Desirable: <200 Borderline High: 200-239 High: >239 15 Low: <40 Desirable: 40-60 High: >60 16 Desirable: <100 Near Optimal: 100-129 Borderline High: 130-159 High: 160-189 Very High: >189 17 FASTING 10 HOUR 18 Because ethnic data is not always readily available, this report includes an eGFR for both -Americans and non- Americans. The National Kidney Disease Education Program (NKDEP) does not endorse the use of the MDRD equation for patients that are not between the ages of 18 and 70, are , have extremes of body size, muscle mass, or nutritional status, or are non- or non-. According to the National Kidney Foundation, irrespective of diagnosis, the stage of the disease is based on the level of kidney function: Stage Description GFR(mL/min/1.73 m(2)) 1 Kidney damage with normal or decreased GFR 90 2 Kidney damage with mild decrease in GFR 60-89 3 Moderate decrease in GFR 30-59 4 Severe decrease in GFR 15-29 5 Kidney failure <15 (or dialysis) 19 PT IS FASTING 20 Desirable <150 Borderline high 150-199 High 200-499 Very High >500 21 Desirable <200 Borderline high 200-239 High >239 22 Low <40 Desirable: 40-60 High: >60 23 Desirable: <100 mg/dL Near Optimal: 100-129 mg/dL Borderline High: 130-159 mg/dL High: 160-189 mg/dL Very High: >189 mg/dL 24 PT IS FASTING 25 PT IS FASTING 26 SEE RESULT BELOW Name: JEN ECKERT Donna : [address]: Tabby Sloan NP Acct: [id number] Unit: [id number] AGE: 66 Location: [facility] Re07/21/16 SEX: F Status: REG REF SPEC: [id number] MICHELLE: 07/21/[address]: Tabby Sloan NP REQ: [id number] RECD: 07/21/16 STATUS: COMP _ SOURCE: THROAT SPDESC: ORDERED: Throat Culture COMMENTS: [id number] Procedure Result Reported Site Throat Culture Final 07/23/16- 1013 ML Organism 1 NORMAL VALERIE Quantity 2+ Throat cultures are clinically indicated to detect the presence of group A strep, arcanobacterium and yeast. In certain cases, predominating organisms will be reported. * ML - MAIN LAB ([facility]) . END OF REPORT * ML=Testing performed at Main Lab DEPARTMENT OF PATHOLOGY, [address] [place] [address] Enrike Peacock M.D. Director [facility] # [id number] 27 Desirable <150 Borderline high 150-199 High 200-499 Very High >500 28 Desirable <200 Borderline high 200-239 High >239 29 Low <40 Desirable: 40-60 High: >60 30 Desirable: <100 mg/dL Near Optimal: 100-129 mg/dL Borderline High: 130-159 mg/dL High: 160-189 mg/dL Very High: >189 mg/dL 31 Because ethnic data is not always readily available, this report includes an eGFR for both -Americans and non- Americans. The National Kidney Disease Education Program (NKDEP) does not endorse the use of the MDRD equation for patients that are not between the ages of 18 and 70, are , have extremes of body size, muscle mass, or nutritional status, or are non- or non-. According to the National Kidney Foundation, irrespective of diagnosis, the stage of the disease is based on the level of kidney function: Stage Description GFR(mL/min/1.73 m(2)) 1 Kidney damage with normal or decreased GFR 90 2 Kidney damage with mild decrease in GFR 60-89 3 Moderate decrease in GFR 30-59 4 Severe decrease in GFR 15-29 5 Kidney failure <15 (or dialysis) 32 FASTING 12 HOUR 33 Desirable <150 Borderline high 150-199 High 200-499 Very High >500 34 Desirable <200 Borderline high 200-239 High >239 35 Low <40 Desirable: 40-60 High: >60 36 Desirable <100 Near Optimal 100-129 Borderline high 130-159 High 160-189 Very High >189 37 Potassium reference range changed effective 08/06/14 38 Because ethnic data is not always readily available, this report includes an eGFR for both -Americans and non- Americans. The National Kidney Disease Education Program (NKDEP) does not endorse the use of the MDRD equation for patients that are not between the ages of 18 and 70, are , have extremes of body size, muscle mass, or nutritional status, or are non- or non-. According to the National Kidney Foundation, irrespective of diagnosis, the stage of the disease is based on the level of kidney function: Stage Description GFR(mL/min/1.73 m(2)) 1 Kidney damage with normal or decreased GFR 90 2 Kidney damage with mild decrease in GFR 60-89 3 Moderate decrease in GFR 30-59 4 Severe decrease in GFR 15-29 5 Kidney failure <15 (or dialysis) 39 REFERENCE VALUE 25-HYDROXY D TOTAL (D2+D3) Optimum levels in the healthy population are 20-50, patients with bone disease may benefit from higher levels within this range. Test Performed by: [place] [address] Customer Leader: Edy Myers M.D. 40 FASTING 10 HOUR 41 HDL Interpretation: Undesirable: High Risk: Less than 40 mg/dL Desirable: Low Risk: Greater than 60 mg/dL 42 LDL Interpretation: Low Risk Optimal Level: LDL Less than 100 mg/dL Near or Above Optimal: LDL 100-129 mg/dL Borderline High Risk: LDL 130-159 mg/dL High Risk: LDL 160-189 mg/dL Very High Risk: LDL Greater than 189 mg/dL 43 FASTING 10 HOUR 44 -- REFERENCE VALUE -- 25-HYDROXY D TOTAL (D2+D3) Optimum levels in the healthy population are 20-50, patients with bone disease may benefit from higher levels within this range. Test Performed by: [place] [address] Customer Leader: Dmitriy Rodriguez III, M.D. 45 Because ethnic data is not always readily available, this report includes an eGFR for both -Americans and non- Americans. The National Kidney Disease Education Program (NKDEP) does not endorse the use of the MDRD equation for patients that are not between the ages of 18 and 70, are , have extremes of body size, muscle mass, or nutritional status, or are non- or non-. According to the National Kidney Foundation, irrespective of diagnosis, the stage of the disease is based on the level of kidney function: Stage Description GFR(mL/min/1.73 m(2)) 1 Kidney damage with normal or decreased GFR 90 2 Kidney damage with mild decrease in GFR 60-89 3 Moderate decrease in GFR 30-59 4 Severe decrease in GFR 15-29 5 Kidney failure <15 (or dialysis) 46 PT IS FASTING 47 PT IS FASTING 48 PT IS FASTING 49 HDL Interpretation: Undesirable: High Risk: Less than 40 MG/DL Desirable: Low Risk: Greater than 60 MG/DL 50 LDL Interpretation: Low Risk Optimal Level: LDL Less than 100 MG/DL Near or Above Optimal: LDL 100-129 MG/DL Borderline High Risk: LDL 130-159 MG/DL High Risk: LDL 160-189 MG/DL Very High Risk: LDL Greater than 189 MG/DL 51 HDL Interpretation: Undesirable: High Risk: Less than 40 MG/DL Desirable: Low Risk: Greater than 60 MG/DL 52 LDL Interpretation: Low Risk Optimal Level: LDL Less than 100 MG/DL Near or Above Optimal: LDL 100-129 MG/DL Borderline High Risk: LDL 130-159 MG/DL High Risk: LDL 160-189 MG/DL Very High Risk: LDL Greater than 189 MG/DL 53 RUN DATE: 08/30/12 [facility] LAB LIVE PAGE 1 RUN TIME: 7111 [address] [place], [place] [address] Specimen Inquiry Name: JEN ECKERT : [address]: Glenis BRAVO,Jonah Jacob Acct: [id number] Unit: [id number] AGE: 62 Location: [facility] Re08/24/12 SEX: F Status: REG REF SPEC: [id number] MICHELLE: 08/24/12- SUBM DR: Jonah Galvin MD REQ: [id number] RECD: 08/25/12 STATUS: RAMÓN GILBERT DR: Kandice Thomas MD _ ORDERED: LEVEL IV FINAL DIAGNOSIS Colon, 15 cm., biopsy: A. Tubular adenoma. B. No high grade dysplasia or malignancy. CLINICAL HISTORY Personal history of polyps POST-OPERATIVE DIAGNOSIS To cecum - at 15 cm. snare; tics GROSS DESCRIPTION The specimen is received in formalin labelled Jen Eckert, Colon Polyp at 15 cm., and consists of a farrell, soft tissue fragment measuring 0.2 x 0.2 x 0.2 cm. Submitted entirely, one cassette. Signed (signature on file) Enrike Peacock MD [id number] END OF REPORT * ML=Testing performed at Main Lab DEPARTMENT OF PATHOLOGY, [facility] [employer] [place], [place] [address] Enrike Peacock M.D. Director [facility] Permit #[id number] RUN DATE: 07/22/12 [facility] LAB LIVE PAGE 1 RUN TIME: 0847 [facility] [employer] [place], [place] [address] Specimen Inquiry Name: JEN ECKERT Donna : [address]: Kandice Thomas MD Acct: [id number] Unit: [id number] AGE: 62 Location: [facility] Re07/16/12 SEX: F Status: REG REF SPEC: [id number] MICHELLE: 07/16/12-[address] [facility] DR: Martha BRAVOKandice REQ: [id number] RECD: 07/19/12 STATUS: SOUT _ ORDERED: IMAGE ANALYSIS, HPV / Thin Prep HiRisk Human Papilloma Virus test results received with preparation and diagnosis completed by [facility], [place], [place]. Results: NEGATIVE High Risk (for types 16, 18, 31, 33, 35, 39, 45, 51, 52, 56, 58, 59, 68) HealthyTweet Hybrid Capture Specimen Transport Media or [employer] ThinPrep PapTest PreservCyt Solution are the collection systems approved for use with this method by the U.S. Food and Drug Administration. Performance characteristics for AutoCyte (SurPath) collection device have been determined by Laboratory Medicine and Pathology , [facility], [place], [place]. It has not been cleared or approved by the U.S. Food and Drug Administration. Test Performed by: [facility] Dpt of lab Med and Pathology [address] [place], [place] [id number] Customer Leader: Dmitriy Rodriguez III, M.D. Original hard copy report from [facility] is available upon request by calling Pathology at [phone]. Addendum Signed DINO Mcneil (ASCP) 07/22 0847 Negative for Intraepithelial lesion or Malignancy COMMENTS: Specimen sent to [facility] in [place], [place] on 07/19/12. Results will be reported separately in an Addendum. A. Ectocervical/Endocervical Specimen Adequacy: Satisfactory of evaluation Transformation zone component cannot be definitely identified due to presence of atrophy or other hormonal changes Patient Information: CONTINUED ON NEXT PAGE * ML=Testing performed at Main Lab DEPARTMENT OF PATHOLOGY, [address] [place] [address] Enrike Peacock M.D. Director [facility] Permit #[id number] RUN DATE: 07/22/12 [facility] LAB LIVE PAGE 2 RUN TIME: [address] [place] [address] Specimen Inquiry Patient: JEN ECKERT [id number] (Continued) CYTOLOGY PATIENT INFORMATION (Continued) Actual Specimen Date: 07/16/12 ?: N Post Menopausal?: Y Previous Abnormal Pap Smears?:N HPV: High risk HPV DNA testing regardless of pap results Signed (signature on file) DINO Mcneil (ASCP) 07/19 1433 This Pap test was evaluated with the assistance of the ThinPrep Test Imaging System. Due to cytologic findings at the alligator hunter microscope, comprehensive manual rescreening by a Supervisor Gas Meter Repair may be required. The Pap Smear is a screening test designed to aid in the detection of premalignant and malignant conditions of the uterine cervix. It is not a diagnostic procedure and should not be used as the sole means of detecting cervical cancer. Both false- positive and false- negative reports do occur. Depending on your risk status, a Pap smear shoudl be obtained and evaluated every 1-3 years. END OF REPORT * ML=Testing performed at Main Lab DEPARTMENT OF PATHOLOGY, [facility] [employer] [place] [address] Enrike Peacock M.D. Director [facility] Permit #[id number] For types 16, 18, 31, 33, 35, 39, 45, 51, 52, 56, 58, 59 and 68. Test Performed by: [place] [address] Customer Leader: Dmitriy Rodriguez III, M.D. R 56 RUN DATE: 07/19/12 [facility] LAB LIVE PAGE 1 RUN TIME: 1433 [facility] [employer] [place], [place] [address] Specimen Inquiry Name: JEN ECKERT : [address]: Kandice Thomas MD Acct: [id number] Unit: [id number] AGE: 62 Location: [facility] Re07/16/12 SEX: F Status: REG REF SPEC: [id number] MICHELLE: 07/16/12-[address] [facility] DR: Martha BRAVOKandice REQ: [id number] RECD: 07/19/12 STATUS: SOUT _ ORDERED: IMAGE ANALYSIS, HPV / Thin Prep Negative for Intraepithelial lesion or Malignancy COMMENTS: Specimen sent to [facility] in [place], [place] on 07/19/12. Results will be reported separately in an Addendum. A. Ectocervical/Endocervical Specimen Adequacy: Satisfactory of evaluation Transformation zone component cannot be definitely identified due to presence of atrophy or other hormonal changes Patient Information: Actual Specimen Date: 07/16/12 ?: N Post Menopausal?: Y Previous Abnormal Pap Smears?:N HPV: High risk HPV DNA testing regardless of pap results Signed (signature on file) DINO Mcneil (ASCP) 07/19 9678 This Pap test was evaluated with the assistance of the ThinPrep Test Imaging System. Due to cytologic findings at the alligator hunter microscope, comprehensive manual rescreening by a Supervisor Gas Meter Repair may be required. The Pap Smear is a screening test designed to aid in the detection of premalignant and malignant conditions of the uterine cervix. It is not a diagnostic procedure and should not be used as the sole means of detecting cervical cancer. Both false- positive and false- negative reports do occur. Depending on your risk status, a Pap smear shoudl be obtained and evaluated every 1-3 years. END OF REPORT * ML=Testing performed at Main Lab DEPARTMENT OF PATHOLOGY, [address] [place] [address] Enrike Peacock M.D. Director [facility] Permit #[id number] Procedures Date CPT Code Description Status 02/25/2018 Mammogram Completed 12/03/2017 Colonoscopy Completed 10/14/2016 37779 Admin & Interp Of Health Risk Assessment w/ Patient Completed 09/11/2016 Mammogram Completed 09/25/2015 Bone Mineral Density Test Completed 09/25/2015 Mammogram Completed 01/27/2014 Mammogram Completed 08/24/2012 Colonoscopy Completed 07/26/2012 Bone Mineral Density Test Completed 07/26/2012 Mammogram Completed Encounters Type Date Location Provider CPT E/M Dx Office Visit 12/21/2017 [facility] Vandana Hart 26983 J06.9 8:40a - Margi Paredes K21.9 Office Visit 07/02/2017 11:40a [facility] Miles Hart M.D. 83183 R12 - Margi Z12.11 Office Visit 05/15/2017 10:20a [facility] Vandana Hart 11119 R10.13 - Margi Paredes R21 Office Visit 03/09/2017 1:00p [facility] Vandana Hart 89908 M79.674 Medicine - Margi Paredes M79.644 R92.2 Office Visit 12/12/2016 4:40p [facility] Miles Hart M.D. 98793 Z23 - Margi Z63.4 Office Visit 11/14/2016 4:40p [facility] Miles Hart 43779 Z63.4 - Margi Paredes Office Visit 10/14/2016 11:00a [facility] Miles Hart 88224 Z00.00 - Margi Paredes Z23 Office Visit 09/18/2016 4:20p [facility] Vandana Hart 48106 Z63.4 - Margi Paredes Office Visit 08/18/2016 9:00a [facility] Miles Hart 06223 Z63.4 - Margi Paredes Z23 Office Visit 07/25/2016 1:00p [facility] Vandana Hart 87382 J20.9 - Margi Paredes Z63.4 Office Visit 07/21/2016 1:00p [facility] Tabby Sloan N.P. 97084 J02.9 - [place] Office Visit 05/19/2016 5:00p [facility] Vandana Tanner, 75336 Z63.4 - [place]gie Office Visit 09/14/2015 10:20a [facility] Vandana Tanner, 28650 Z00.00 - Margi Paredes E55.9 Z12.31 M85.80 Z23 Office Visit 03/02/2015 4:20p [facility] Vandana Tanner, 65880 388.31 - Margi Paredes 709.8 892.0 Office Visit 09/12/2014 10:20a [facility] Vandana Tanner, 04511 V70.0 - Margi Paredes 782.1 V04.81 Office Visit 05/30/2014 1:00p [facility] Vandanavale Hart 05319 724.5 - Margi Paredes 700 Office Visit 01/30/2014 8:40a [facility] - Kandice Thomas M.D. 95714 272.0 [place] 300.00 Office Visit 09/09/2013 11:00a [facility] - Kandice Thomas M.D. 18751 V70.0 [place] V76.10 Office Visit 05/23/2013 9:00a [facility] - Kandice Thomas M.D. 07797 723.1 [place] 728.85 719.44 272.0 Office Visit 01/21/2013 11:40a [facility] - Kandice Thomas M.D. 63237 300.00 [place] Office Visit 12/17/2012 11:00a [facility] - Kandice Thomas M.D. 22862 300.00 [place] Office Visit 12/01/2012 8:40a [facility] - Kandice Thomas M.D. 43655 300.00 [place] Office Visit 10/18/2012 11:20a [facility] - Kandice Thomas M.D. 10945 300.00 [place] Office Visit 09/17/2012 3:40p [facility] - Kandice Thomas M.D. 80779 719.44 [place] 627.9 535.50 Office Visit 07/16/2012 10:20a [facility] - Kandice Thomas M.D. 30845 V72.31 [place] V76.2 V76.51 V76.10 V06.1 V04.81 627.9 719.47 Plan of Care Future Appointment(s):02/14/2019 11:00 am - Vandana Hart M.D. at [facility] - [place]ensbiutq57/12/2018 - Anshul Marshall NPM54.5 Low back painNew Medication:Baclofen 10 mgNew Therapy:Physical TherapyComments:I recommend using heat frequently to the lower back.You can continue taking the aspirin up to three times daily. I am prescribing a muscle relaxant which may help you sleep. This may make you tired.I am referring you to physical therapy.If your symptoms are worsening or not improving please call.Follow up:prn
--- NOTE | 2018-05-14 09:51 | UC ---
Skin Complaint HPI - HPI Summary HPI Summary: 68 yo female presents with ?FB in her RIGHT foot at the webspacing of her 1st and 2nd toe. 3 days ago she tells me that she was walking around her house barefoot on hardwood floors and felt a sharp pain in this area. Examined the site and did not see a splinter or FB. Did not have any residual pain. Yesterday was working in her garden and developed pain in this same area. She is here today because she thinks something may be stuck within her foot at this area. Has not taken anything for pain. She is ambulatory without assistance. - History of Current Complaint Chief Complaint: UCForeignBody Time Seen by Provider: 05/14/18 09:43 Stated Complaint: FB IN FOOT Hx Obtained From: Patient Onset/Duration: Sudden Onset Skin Exposure Onset/Duration: Days Ago Onset Severity: Mild Current Severity: Mild Pain Intensity: 4 Pain Scale Used: 0-10 Numeric - Allergy/Home Medications Allergies/Adverse Reactions: Allergies Allergy/AdvReac Type Severity Reaction Status Date / Time Penicillins Allergy See Comment Verified 05/14/18 08:27 Review of Systems Constitutional: Negative Skin: Negative Respiratory: Negative Cardiovascular: Negative Neurovascular: Negative Musculoskeletal: Other: - Right foot pain Neurological: Negative Psychological: Negative All Other Systems Reviewed And Are Negative: Yes PMH/Surg Hx/FS Hx/Imm Hx - Additional Past Medical History Additional PMH: None Previously Healthy: Yes Other History Of: Negative For: Hepatitis C - Surgical History Surgical History: Yes Surgery Procedure, Year, and Place: nick; T & A; wisdom teeth ,polyps removed - Family History Known Family History: Positive: None Negative: Cardiac Disease, Hypertension Family History: no cardiovascular or bleeding disorders in family lineage - Social History Occupation: Retired Lives: With Family Alcohol Use: Rare Substance Use Type: None Smoking Status (MU): Never Smoked Tobacco - Immunization History Hx Tetanus, Diphtheria Vaccination: Yes Vaccination Up to Date: Yes Physical Exam - Summary Physical Exam Summary: GENERAL: NAD. WDWN. No pain distress. SKIN: At web space of RIGHT 1st and 2nd toe there is a 1.0cm area of mild edema and tenderness. No appreciable entrance point of FB. No warmth. No rashes, sores , lesions, or open wounds. NECK: Supple. Nontender. No lymphadenopathy. CHEST: No accessory muscle use. Breathing comfortably and in no distress. CV: Pulses intact PT and DP. Brisk cap refill. MSK: Right foot and toes: FROM without pain. NEURO: Alert. Sensations intact and symmetric B/L LEs PSYCH: Age appropriate behavior. Triage Information Reviewed: Yes Vital Signs: Initial Vital Signs Temp 98 F 05/14/18 08:23 Pulse 76 05/14/18 08:23 Resp 15 05/14/18 08:23 BP 126/66 05/14/18 08:23 Pulse Ox 99 05/14/18 08:23 Vital Signs Reviewed: Yes Course/Dx - Course Course Of Treatment: XR: IMPRESSION: NO FRACTURE OR RADIOPAQUE FOREIGN BODY. When informing the pt of her XR results, she mentions that in her garden there are a lot of bees and that she encourages them for pollination purposes. She now thinks that she may have stepped on a bee or gotten stung by a bee in this region. Her clinical exam seems more consistent with a bee/insect bite/sting. Advised to take benadryl and will rx for steroid cream. - Diagnoses Provider Diagnoses: Bee sting right foot Discharge - Sign-Out/Discharge Documenting (check all that apply): Patient Departure - Discharge Plan Condition: Stable Disposition: HOME Prescriptions: Triamcinolone 0.1% CREAM (NF) [Kenalog 0.1% Cream (NF)] 1 applic TOPICAL BID #1 tube Patient Education Materials: Insect Bite or Sting (ED) Referrals: Vandana Hart MD [Primary Care Provider] - Additional Instructions: If you develop a fever, shortness of breath, chest pain, new or worsening symptoms - please call your PCP or go to the ED. 1) Please take benadryl daily - Billing Disposition and Condition Condition: STABLE Disposition: Home
--- NOTE | 2018-05-14 10:29 | RAD ---
INDICATION: Evaluate for foreign body COMPARISON: None TECHNIQUE: AP, lateral, and oblique views were obtained. FINDINGS: There is no fracture or foreign body. The joint spaces are maintained. There is mild soft tissue swelling about the web space in the first and second toes. IMPRESSION: NO FRACTURE OR RADIOPAQUE FOREIGN BODY.
[2018-05-14 10:41] VITALS: BP 123/74
== END 2018-05-14 10:43 | disposition home or self-care (01) ==
LOC: UCEAST 08:17
DX: T63.441A Toxic effect of venom of bees, accidental (unintentional), initial encounter (principal); Y92.009 Unspecified place in unspecified non-institutional (private) residence as the place of occurrence of the external cause; Z88.0 Allergy status to penicillin
CPT/HCPCS: 99212; G0463

== ENCOUNTER 2018-11-12 14:55 | Emergency (ER) | payer MEDICARE ==
[2018-11-12 15:36] VITALS: BP 125/75
--- NOTE | 2018-11-12 15:42 | UC ---
Skin Complaint HPI - HPI Summary HPI Summary: 68 yo female presents with bug bite to left inner thigh. She tells me that she was going to the bathroom about 4 hours [employer] and noticed a black bug with legs on her left inner thigh. She pulled it off and says that it looked like a tick. Her dogs have been outside a lot and [place] - therefore she is very anxious and concerned today that this is a tick. She does not believe the insect was attached for more than a few hours. - History of Current Complaint Chief Complaint: UCSkin Time Seen by Provider: 11/12/18 15:42 Stated Complaint: TICK BITE Hx Obtained From: Patient Onset/Duration: Sudden Onset Current Severity: None Pain Intensity: 0 Pain Scale Used: 0-10 Numeric - Allergy/Home Medications Allergies/Adverse Reactions: Allergies Allergy/AdvReac Type Severity Reaction Status Date / Time Penicillins Allergy See Comment Verified 11/12/18 15:36 PMH/Surg Hx/FS Hx/Imm Hx - Additional Past Medical History Additional PMH: None Other History Of: Negative For: Hepatitis C - Surgical History Surgical History: Yes Surgery Procedure, Year, and Place: nick; T & A; wisdom teeth ,polyps removed - Family History Known Family History: Positive: None Negative: Cardiac Disease, Hypertension Family History: no cardiovascular or bleeding disorders in family lineage - Social History Lives: With Family Alcohol Use: Occasionally Substance Use Type: None Smoking Status (MU): Never Smoked Tobacco - Immunization History Hx Tetanus, Diphtheria Vaccination: Yes Vaccination Up to Date: Yes Review of Systems All Other Systems Reviewed And Are Negative: Yes Constitutional: Positive: Negative Skin: Positive: Other - Bug bite left inner thigh Respiratory: Positive: Negative Cardiovascular: Positive: Negative Neurovascular: Positive: Negative Neurological: Positive: Negative Psychological: Positive: Negative Physical Exam - Summary Physical Exam Summary: GENERAL: NAD. WDWN. No pain distress. SKIN: LEFT inner thigh: 5mm area of mild erythema and ecchymosis with central 1mm bug bite. No edema, streaking, or warmth. No remaining insect pieces. NECK: Supple. Nontender. No lymphadenopathy. CHEST: No accessory muscle use. Breathing comfortably and in no distress. CV: Pulses intact. Cap refill <2seconds NEURO: Alert. PSYCH: Age appropriate behavior. Triage Information Reviewed: Yes Vital Signs: Initial Vital Signs Temp 98.5 F 11/12/18 15:31 Pulse 69 11/12/18 15:31 Resp 16 11/12/18 15:31 BP 125/75 11/12/18 15:31 Pulse Ox 99 11/12/18 15:31 Vital Signs Reviewed: Yes Course/Dx - Course Course Of Treatment: This time of year is unlikely for tick bite, however pt's exam appears consistent with a tick bite. Given that [place] and is most concerned about a tick/lyme disease today - will treat with prophylactic doxycycline. - Diagnoses Provider Diagnosis: Bug bite Discharge - Sign-Out/Discharge Documenting (check all that apply): Patient Departure All imaging exams completed and their final reports reviewed: No Studies - Discharge Plan Condition: Stable Disposition: HOME Patient Education Materials: Lyme Disease (ED), Tick Bite (ED) Referrals: Vandana Hart MD [Primary Care Provider] - Additional Instructions: If you develop a fever, shortness of breath, chest pain, new or worsening symptoms - please call your PCP or go to the ED. You have been bitten by a tick. Once the tick is removed, these "bites" usually cause no problems. Tick fever, tick paralysis, Pease Spotted fever, and Lyme disease are uncommon -- but you should mention this tick bite to your doctor if you develop unusual symptoms in the next several weeks. If you develop any of the following, please see your physician promptly: (1) Fever, chills, or generalized malaise associated with a headache. (2) A red round area at the site of the bite (or elsewhere) (3) Joint pain, joint swelling or generalized weakness. (4) Redness, swelling, or drainage at the site of the bite. - Billing Disposition and Condition Condition: STABLE Disposition: Home
[2018-11-12] MEDS ORDERED: DOXYcycline CAP(*) 100 MG PO ONE (15:51)
== END 2018-11-12 15:55 | disposition home or self-care (01) ==
LOC: UCEAST 14:55
DX: S70.362A Insect bite (nonvenomous), left thigh, initial encounter (principal); Z88.0 Allergy status to penicillin; W57.XXXA Bitten or stung by nonvenomous insect and other nonvenomous arthropods, initial encounter; Y92.9 Unspecified place or not applicable
CPT/HCPCS: 99211; A9270-GY; G0463

== ENCOUNTER 2018-12-21 08:27 | Day surgery (SDC) | payer MEDICARE ==
[~2018-12-21 08:27] MED LIST: Acetaminophen TAB* 325 MG PO PRN; Buffered Lidocaine 1% SYRIN* 1 ML/SYRINGE INTRADERM ONE
[2018-12-21] MEDS ORDERED: Midazolam* 1 MG/ML 2 ML VIAL (2 MG) ONE ×2 (10:18→10:51)
[2018-12-21] MEDS ORDERED: fentaNYL* 50 MCG/ML 2 ML VIAL (100 MCG VIAL) ONE (10:18)
[2018-12-21 11:32] VITALS: BP 107/73
[2018-12-21] MEDS ORDERED: Tetracaine 0.5% OPTH.SOL 4 ML* 1 DROP BTL ONE (11:38)
[2018-12-21] MEDS ORDERED: Neomycin/Polymy/Dex OPHTH.OIN* 3.5 GM ONE (11:38)
[2018-12-21] MEDS ORDERED: Tropicamide 1% OPTH.SOL* BTL ONE (11:38)
[2018-12-21] MEDS ORDERED: Ketorolac 0.5% OPHTH (NF) 0.5 % 5 ML BTL ONE (11:38)
[2018-12-21] MEDS ORDERED: Phenylephrine 2.5% OPTH.SOL* 2 ML BTL ONE (11:38)
[2018-12-21] MEDS ORDERED: Cyclopentolate 1% OPTH.SOL* 2 ML BTL ONE (11:38)
[2018-12-21] MEDS ORDERED: Lidocaine 1%* 5 ML VIAL ONE (11:38)
--- NOTE | 2018-12-21 16:22 | OP ---
DATE OF OPERATION: 12/21/18 - [facility] DATE OF : 52 SURGEON: Nolan Blancas MD CONCIERGE RECEPTIONIST: None. ANESTHESIA: Topical with intravenous sedation. PRE-OP DIAGNOSES: Cataract with astigmatism, right eye. POST-OP DIAGNOSES: Cataract with astigmatism, right eye. OPERATIVE PROCEDURE: Cataract extraction with posterior chamber Toric intraocular lens implant, right eye. COMPLICATIONS: None. ESTIMATED BLOOD LOSS: None. DESCRIPTION OF PROCEDURE: The patient was seen preoperatively in the holding area, where a was made at the 6 o'clock position at the limbus of the right eye while the patient was sitting upright. The patient was subsequently brought to the operating room and received small amount of intravenous sedation. A drop of tetracaine was placed in the right eye. The patient was prepped and draped in the usual sterile fashion for ophthalmic surgery and attention was directed to the right eye where a speculum was placed. A paracentesis was created at the 11 o'clock position and 0.1 cc of 1% preservative-free lidocaine was injected into the anterior chamber followed by DisCoVisc. The eye was digitally stabilized while a 2.75-mm keratome was used to create a triplanar clear corneal incision at the 9 o'clock position. A continuous curvilinear capsulorrhexis was created with the cystotome and Utrata forceps. BSS on a cannula was used to hydrodissect the lens from the capsule. Phacoemulsification was performed in a [id number] technique to create 4 fragments, which were removed. Residual cortical material was removed with irrigation and aspiration. ProVisc was used to inflate the capsular bag. The ORA instrument was employed to help guide the lens choice. An SN6AT3 10.5 diopter lens was folded and inserted into the capsular bag. It was rotated to the 55-degree axis as guided by the ORA's reticle. The lens was stabilized with a Sinskey hook while irrigation and aspiration was performed to remove viscoelastic from the eye. BSS on a cannula was used to hydrate the corneal stroma and seal the wound. At the end of the case, the lens was centered, stable, and axially aligned. The pupil is round, the eye pressure appeared normal and the wound was watertight. The speculum was removed and topical Maxitrol ointment was placed on the surface of the eye. The eye was closed, patched, and shielded and the patient was sent to recovery room in stable condition with postoperative instructions and followup appointment given. [id number]/[facility] #: [id number] PAT
== END 2018-12-21 11:41 | disposition home or self-care (01) ==
LOC: OREAST 08:27
PROVIDERS: ATTEND Ophthalmology
DX: H25.041 Posterior subcapsular polar age-related cataract, right eye (principal); H52.201 Unspecified astigmatism, right eye; Z88.0 Allergy status to penicillin
CPT/HCPCS: A9270-GY; J2250; J3010; V2787

== ENCOUNTER 2018-12-28 07:24 | Day surgery (SDC) | payer MEDICARE ==
[2018-12-28] MEDS ORDERED: Midazolam* 1 MG/ML 2 ML VIAL (2 MG) ONE ×2 (08:31→09:18)
[2018-12-28] MEDS ORDERED: fentaNYL* 50 MCG/ML 2 ML VIAL (100 MCG VIAL) ONE (08:32)
[2018-12-28 09:45] VITALS: BP 113/55
--- NOTE | 2018-12-28 10:17 | OP ---
OPERATIVE REPORT: DATE OF OPERATION: 12/28/18 - [facility] DATE OF : 52 SURGEON: Nolan Blancas MD. LEAD PRESSMAN: None. ANESTHESIA: Topical with intravenous sedation. PRE-OP DIAGNOSIS: Cataract with astigmatism, left eye. POST-OP DIAGNOSIS: Cataract with astigmatism, left eye. OPERATIVE PROCEDURE: Phacoemulsification and cataract extraction with posterior chamber toric intraocular lens implant, left eye. COMPLICATIONS: None. BLOOD LOSS: None. OPERATIVE FINDINGS: The patient was seen preoperatively in the holding area where a was made at the 6 o'clock position of the limbus while the patient was in an upright position. The patient was subsequently brought to the operating room and received intravenous sedation as well as a drop of tetracaine to the left eye. The patient was prepped and draped in the usual sterile fashion for ophthalmic surgery and attention was directed to the left eye where a speculum was placed. A paracentesis was created at the 5 o'clock position and 0.1 cc of 1% preservative- free lidocaine was injected in the anterior chamber followed by DisCoVisc. The eye was digitally stabilized while a 2.75-mm keratome was used to create a triplanar clear corneal incision at the 3 o'clock position. A continuous curvilinear capsulorrhexis was created with a cystotome and Utrata forceps. BSS on a cannula was used to hydrodissect the lens from the capsule. Phacoemulsification was performed in a divide-and- conquer technique to create 4 fragments which were removed. Residual cortical material was removed with irrigation and aspiration. Provisc was used to inflate the capsular bag and the anterior chamber. The eye pressure was measured with intraoperative tonometer and found to be appropriate. The surface of the eye was lubricated. The ORA instrument was employed to help guide the lens choice. An SN6AT4 9.0 diopter lens was chosen. It was folded and inserted in the eye. It was rotated to the 125-degree axis as per ORA recommendations. Irrigation and aspiration was performed to remove viscoelastic from the eye and the lens was stabilized with a Sinskey hook through the paracentesis incision. The Sinskey hook was then removed. BSS on a cannula was used to hydrate the corneal stroma and seal the wound. At the end of the case, the eye pressure appeared normal and the wound was watertight. The lens was centered stable and axially aligned. The speculum was removed and topical Maxitrol ointment was placed in the surface of the eye. The eye was closed, patched, and shielded, and the patient was sent to the recovery room in stable condition with postoperative instructions and followup appointment given. [id number]/[facility] #: [id number] MTDD
[2018-12-28] MEDS ORDERED: Ketorolac 0.5% OPHTH (NF) 0.5 % 5 ML BTL ONE (14:51)
[2018-12-28] MEDS ORDERED: Phenylephrine OPHTH SOL 2.5%* 2 ML ONE (14:51)
[2018-12-28] MEDS ORDERED: Cyclopentolate 1% OPTH.SOL* 2 ML BTL ONE (14:51)
[2018-12-28] MEDS ORDERED: Lidocaine 1%* 5 ML VIAL ONE (14:51)
[2018-12-28] MEDS ORDERED: Tetracaine 0.5% OPTH.SOL 4 ML* 1 DROP BTL ONE (14:51)
[2018-12-28] MEDS ORDERED: Tropicamide 1% OPTH.SOL* BTL ONE (14:51)
[2018-12-28] MEDS ORDERED: Neomycin/Polymy/Dex OPHTH.OIN* 3.5 GM ONE (14:51)
== END 2018-12-28 09:47 | disposition home or self-care (01) ==
LOC: OREAST 07:24
PROVIDERS: ATTEND Ophthalmology
DX: H25.042 Posterior subcapsular polar age-related cataract, left eye (principal); Z88.0 Allergy status to penicillin; E78.5 Hyperlipidemia, unspecified; K21.9 Gastro-esophageal reflux disease without esophagitis; K44.9 Diaphragmatic hernia without obstruction or gangrene
CPT/HCPCS: A9270-GY; J2250; J3010; V2787

== ENCOUNTER 2019-07-10 10:24 | Emergency (ER) | payer MEDICARE ==
[2019-07-10 10:33] VITALS: BP 146/66
[2019-07-10] MEDS ORDERED: DOXYcycline CAP(*) 100 MG PO ONE (11:20)
--- NOTE | 2019-07-10 11:27 | UC ---
Skin Complaint HPI - HPI Summary HPI Summary: 69 yo W p/w tick bite noted at 2AM this morning in left axilla, thinks it appeared enlarged, denies rash, f/c/n/v/d. - History of Current Complaint Chief Complaint: UCSkin Time Seen by Provider: 07/10/19 10:44 Stated Complaint: TICK BITE,BEE STING Hx Obtained From: Patient ?: No Onset/Duration: Sudden Onset Skin Exposure Onset/Duration: Hours Ago Onset Severity: Mild Current Severity: Mild Pain Intensity: 0 - Allergy/Home Medications Allergies/Adverse Reactions: Allergies Allergy/AdvReac Type Severity Reaction Status Date / Time Penicillins Allergy Severe See Comment Verified 07/10/19 10:33 PMH/Surg Hx/FS Hx/Imm Hx Previously Healthy: Yes Other History Of: Negative For: Hepatitis C - Surgical History Surgical History: Yes Surgery Procedure, Year, and Place: nick; T & A; wisdom teeth ,polyps removed - Family History Known Family History: Positive: None, Non-Contributory Negative: Cardiac Disease, Hypertension Family History: no cardiovascular or bleeding disorders in family lineage - Social History Alcohol Use: Occasionally Substance Use Type: None Smoking Status (MU): Never Smoked Tobacco - Immunization History Hx Tetanus, Diphtheria Vaccination: Yes Vaccination Up to Date: Yes Review of Systems All Other Systems Reviewed And Are Negative: Yes Constitutional: Positive: Negative Skin: Positive: Other - tick bite in left axilla ENT: Positive: Negative Respiratory: Positive: Negative Cardiovascular: Positive: Negative Gastrointestinal: Positive: Negative Motor: Positive: Negative Neurovascular: Positive: Negative Musculoskeletal: Positive: Negative Neurological: Positive: Negative Is Patient Immunocompromised?: No Physical Exam - Summary Physical Exam Summary: Vital Signs Reviewed: Yes Eye Exam: Normal Eyes: Positive: Conjunctiva Clear ENT: Positive: Normal ENT inspection Neck: Positive: Supple Respiratory Exam: Normal Respiratory: Positive: Lungs clear, Normal breath sounds. Cardiovascular Exam: Normal Cardiovascular: Positive: RRR Abdomen: NT/ND Musculoskeletal Exam: Normal Neurological Exam: Normal Psychological Exam: Normal Skin Exam: tick bite in left axilla with mild erythema around tick bite ~7mm in diameter, NO erythema migrans noted Triage Information Reviewed: Yes Vital Signs: Initial Vital Signs Temp 35.6 C 07/10/19 10:28 Pulse 76 07/10/19 10:28 Resp 18 07/10/19 10:28 BP 146/66 07/10/19 10:28 Pulse Ox 100 07/10/19 10:28 Vital Signs Reviewed: Yes Course/Dx - Course Course Of Treatment: known tick bite <72 hrs but engorged, pt anxious, Doxy 200mg po once, advised lyme titer blood test in 3 weeks - Diagnoses Provider Diagnosis: Tick bite of axillary region Discharge ED - Sign-Out/Discharge Documenting (check all that apply): Patient Departure All imaging exams completed and their final reports reviewed: No Studies - Discharge Plan Condition: Stable Disposition: HOME Patient Education Materials: Tick Bite (ED) Referrals: Vandana Hart MD [Primary Care Provider] - - Billing Disposition and Condition Condition: STABLE Disposition: Home
== END 2019-07-10 11:32 | disposition home or self-care (01) ==
LOC: UCEAST 10:24
DX: T63.441A Toxic effect of venom of bees, accidental (unintentional), initial encounter (principal); Y92.9 Unspecified place or not applicable
CPT/HCPCS: 99212; A9270-GY; G0463